=== PATIENT | male | born 1970 | race Caucasian/White ===

== ENCOUNTER 2020-12-19 20:08 | Emergency (ER) | payer MEDICAID ==
[~2020-12-19] VITALS: Ht 193 cm; Wt 144.1 kg
[2020-12-19] MEDS ORDERED: ALBUTEROL/IPRATROPIUM 2.5MG/0.5MG, 3 ML ONE ×2 (20:48→21:25)
--- NOTE | 2020-12-19 20:48 | NUR ---
human resources designate: Pt ambulatory to room from lobby at this time.
[2020-12-19 20:59] LABS: BASOPHILS % (AUTO) 1 % (0-1); EOSINOPHILS % (AUTO) 1 % (1-7); LYMPHOCYTES % (AUTO) 15 % (22-44); MEAN CORPUSCULAR HEMOGLOBIN 20.6 pg (27.5-34.5); MEAN CORPUSCULAR HGB CONC 30.7 g/dL (33.2-36.2); MONOCYTES % (AUTO) 26 % (2-9); NEUTROPHILS % (AUTO) 56 % (42-75); PLATELET COUNT 164 x10^3/uL (130-400); RED BLOOD COUNT 4.39 x10^6/uL (4.38-5.82); RED CELL DISTRIBUTION WIDTH 18.4 % (9.4-14.8)
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
[2020-12-19 21:00] VITALS: BP 108/76
[2020-12-19] MEDS ORDERED: ALBUTEROL/IPRATROPIUM 2.5MG/0.5MG, 3 ML NPPB ONE (21:00)
--- NOTE | 2020-12-19 21:07 | NUR ---
Patient ambulatory to xr.
[2020-12-19 21:08] LABS: ALBUMIN 3.6 g/dL (3.4-5.0); ANION GAP 6 mmol/L (5-15); CALCIUM 8.6 mg/dL (8.5-10.1); CHLORIDE 99 mmol/L (98-107); CREATININE 1.13 mg/dL (0.7-1.3)
[2020-12-19 21:12] LABS: TROPONIN I < 0.015 ng/mL (0.000-0.045)
[2020-12-19 21:18] LABS: ANISOCYTOSIS 2+; MICROCYTOSIS 2+; OVALOCYTES 1+; POLYCHROMASIA 1+
[2020-12-19 21:19] LABS: <PLATELET ESTIMATE> ADEQUATE; <PLT MORPHOLOGY> NORMAL PLT MORPH
--- NOTE | 2020-12-19 21:26 | NUR ---
Second duoneb tx initiated.
--- NOTE | 2020-12-19 22:13 | NUR ---
Discharge instructions given. All questions and concerns addressed. Patient ambulatory with a steady gait. Belongings with patient.
== END 2020-12-19 22:14 | disposition home or self-care (01) ==
LOC: ED 21:35
DX: J45.31 Mild persistent asthma with (acute) exacerbation (principal); D63.8 Anemia in other chronic diseases classified elsewhere; R06.02 Shortness of breath; R07.89 Other chest pain; R94.31 Abnormal electrocardiogram [ECG] [EKG]
CPT/HCPCS: 36415; 71046; 80048; 82040; 84484; 85025; 93005; 99285